=== PATIENT | male | born 1965 | race Caucasian/White ===

== ENCOUNTER → 2019-11-05 09:28 | Outpatient (BNVA) | payer MEDICARE, MEDICAID, SELFPAY | PROVIDERS: Family Provider Nurse Practitioner Family; PCP Nurse Practitioner Family; Visit Provider Specialist | DX: G81.14 Spastic hemiplegia affecting left nondominant side (principal); F17.210 Nicotine dependence, cigarettes, uncomplicated | CPT/HCPCS: 64642; J0585 ==

== ENCOUNTER 2020-01-11 11:27 | Day surgery (SDC) | payer MEDICARE, MEDICAID, SELFPAY ==
[2020-01-08 13:20] VITALS: BMI 27.8
[2020-01-11] VITALS (11 sets, daily range): BP systolic 143–192; BP diastolic 78–112; PULSE 65–87; RESP 14–20; TEMP 36.6–37; O2SAT 95–100
[2020-01-11] MEDS: sodium chloride 0.9% 1,000 ML 30 ML IV (12:28)
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
[2020-01-11] MEDS: lidocaine 2% INJ 20 mL INJECTION (14:22)
--- NOTE | 2020-01-11 14:55 | PM.OP ---
Operative Report Date of procedure: January 11, 2020 Pre-op Diagnosis: Left inguinal hernia Post-op diagnosis: same (Indirect left inguinal hernia) Procedure Done: Open left inguinal hernia repair with mesh placement and excision of left spermatic cord lipoma Implants: Polypropylene mesh small size Specimens removed/disposition: Hernial sac and lipoma of the cord Surgeon: Jeffery Jaimes Director Private Music Therapy Agency: [facility] Anesthesia: General (sand slinger is Mathias and Jovon) Estimated blood loss (mL): 5 Complications: No immediate complication Condition: stable Disposition: same day Brief History: This is a pleasant 54 years old gentleman referred to my practice with symptomatic left inguinal hernia, after thorough history physical examination and reviewing the chart I did rehabilitation counselor the patient for left open inguinal hernia repair with mesh placement and patient agreed to proceed. Informed consent per chart Procedure: Patient was identified in the holding area and left groin was marked by myself, patient was asked to void urine prior to surgery ,patient was taken to the operating room where he was placed in supine position, antibiotic was given with induction, endotracheal tube was placed per anesthesia, prep and drape of both groins and lower abdomen and scrotum including the genitalia was done under the usual sterile technique. Timeout was done verifying the patient's name/date of /planned procedure destination after the procedure, all were in agreement. SCDs confirmed to be functioning, preoperative antibiotics administered per protocol, and beta kraig protocol was confirmed. I started with a left groin incision 1-1/2 finger above the inguinal ligament towards the pubic tubercle, used 15 blade knife skin incision followed by a traversing vein was securely ligated by 3-0 silk ties and divided,continued to dissect using Bovie to subcutaneous Joseph's down to the external oblique aponeurosis, a moderate left indirect inguinal hernia was identified, external oblique aponeurosis was then incised using a 10 blade knife, after application of 2 hemostats across sides of the fascia and opened it, left ileo-inguinal nerve was safeguard, I managed to dissect and deliver the left spermatic cord out of the wound, and placed a Sara drain for traction and countertraction, I dissected the spermatic cord and the vas deferens is identified and safeguarded ,as I identified a left indirect inguinal hernia sac,the hernia sac was totally dissected until I reached the deep inguinal ring, I opened the hernia sac the contents were viable, and I did apply a transfixing suture with 2-0 silk pop off under direct vision were I tied down and the sac went inside the abdominal cavity and I cut the extra sac and sent it for pathology, an extra 2-0 silk was applied at the stump of the sac safeguarding the contents. Associated lipoma of the cord was dissected and excised and sent for pathology Attention was now deviated to mesh placement , using polypropylene mesh system was applied tension-free(small size), a cone was applied at the deep inguinal ring stabilized by silk sutures 2/0, followed by a sheet of mesh was applied onto the floor of the posterior wall of the left inguinal canal and anchored medially to the pubic tubercle then inferiorly to the underlying surface of the inguinal ligament and superiorly to the internal oblique aponeurosis using some sutures 2/0, both limbs of the mesh encircled the exit of the cord at the deep inguinal ring, and stitched down. The cord maintained to be in good position thorough irrigation of the wound was done with normal saline and closure of the external oblique aponeurosis was done by 2/O Vicryl, followed by approximation of Joseph's fascia by 3-0 Vicryl then 4/ Monocryl to close the skin, dressing was then applied in the form of Dermabond. Counts of instruments, sponges and needles were completed at the end of the procedure. Scrotal support was then placed Patient tolerated the procedure well and was taken to the recovery area after extubation I was present for the whole entire procedure
[2020-01-11] MEDS: HYDROcodone-acetaminophen 7.5-325 mg Tablet 1 TAB PO (16:50)
== END 2020-01-11 17:35 ==
PROVIDERS: Family Provider Nurse Practitioner Family; PCP Nurse Practitioner Family; Visit Provider Surgery
PROC: (CPT 49505; principal; 2020-01-11 13:25)
DX: K40.90 Unilateral inguinal hernia, without obstruction or gangrene, not specified as recurrent (principal); D17.6 Benign lipomatous neoplasm of spermatic cord; F17.210 Nicotine dependence, cigarettes, uncomplicated
CPT/HCPCS: 49505; 55520; 12345; 51702; 88302; 88304; 96365; J0131; J0690; J1100; J2001; J2405; J2704; J2710; J3010; J3490; J7030

== ENCOUNTER → 2020-01-28 09:59 | Outpatient (BNVA) | payer MEDICARE, MEDICAID, SELFPAY | PROVIDERS: Family Provider Nurse Practitioner Family; PCP Nurse Practitioner Family; Visit Provider Specialist | DX: G81.12 Spastic hemiplegia affecting left dominant side (principal); F17.210 Nicotine dependence, cigarettes, uncomplicated | CPT/HCPCS: 64642; J0585 ==

== ENCOUNTER → 2020-04-26 14:19 | Outpatient (BNVA) | payer MEDICARE, MEDICAID, SELFPAY | PROVIDERS: Family Provider Nurse Practitioner Family; PCP Nurse Practitioner Family; Visit Provider Specialist | DX: G81.12 Spastic hemiplegia affecting left dominant side (principal) | CPT/HCPCS: 64642; 99214; J0585 ==

== ENCOUNTER 2020-05-31 06:00 | Outpatient (RCR) | payer MEDICARE, MEDICAID, SELFPAY | END 2020-06-08 23:59 | disposition home or self-care (01) | LOC: MOT 06:00 | PROVIDERS: PCP Nurse Practitioner Family; Referring Provider Specialist; Visit Provider Specialist | DX: G81.10 Spastic hemiplegia affecting unspecified side (principal) | CPT/HCPCS: 97166 ==

== ENCOUNTER 2020-10-06 14:20 | Emergency (ER) | payer MEDICAID, SELFPAY ==
[2020-10-06 14:24] VITALS: BP 145/84; PULSE 76; RESP 18; O2SAT 96; BMI 21.5
--- NOTE | 2020-10-06 14:34 | ED_ITS ---
HPI - Epistaxis General: Chief complaint: Epistaxis Stated complaint: NOSEBLEED Time Seen by Provider: 10/06/20 14:24 History of Present Illness: HPI Narrative: 55-year-old male presents emergency room with complaint of epistaxis. On arrival here with EMS EMS reports they had not seen any blood. Patient has stuffed tissue paper of both nares removal of those there is no evidence of any blood. Patient did state he put Vicks in his nose. There is a little bit of dried blood on the top of his left shoe but no other blood evident anywhere on his clothing. He states he does not take any blood thinners. Smells strongly of marijuana complaint: epistaxis Associated symptoms: Deny fever(s), headache(s), sinus pain, syncope, vomiting or weakness Treatment prior to arrival: stuffed nose with tissue Review of Systems Const: Denies: fever(s) ENMT: Denies: sinus pain Card: Denies: syncope Resp: Denies: dyspnea, productive cough or non-productive cough GI: Denies: vomiting : Denies: flank pain, dysuria, urinary frequency or urinary urgency Skin/Breast: Denies: rash or pruritus Neuro: Denies: headache(s) PFSH ED PFSH: Medical History Brain injury Chronic constipation Depression Hernia History of jejunostomy tube placement Left lower quadrant abdominal pain Left spastic hemiplegia Family History Other Cancer Diabetes Denies family history of Anesthesia complication Bleeding disorder Social History Smoking and tobacco status: current every day smoker Quit status (tobacco): not considering quitting Second hand smoke exposure: No Alcohol intake: current Alcohol intake frequency: holidays/special occasions only Desire information about substance/drug rehabilitation?: No Lives independently: Yes Housing: Apartment Marital status: Single History of recent travel: No Physical Exam Const: COMMON NORMALS: no acute distress GENERAL APPEARANCE: cooperative and comfortable ORIENTATION/CONSCIOUSNESS: Yes awake, Yes oriented to person, Yes oriented to place and Yes oriented to time HENMT: COMMON NORMALS: normocephalic, atraumatic and hearing grossly normal bilaterally HEAD & SCALP: normocephalic and atraumatic Neck/C-Spine: COMMON NORMALS: no JVD Resp: COMMON NORMALS: normal respiratory effort, No retractions, No use of accessory muscles and clear to auscultation bilaterally AUSCULTATION: clear to auscultation bilaterally Cardio: COMMON NORMALS: no JVD, regular rate, regular rhythm and No murmurs present (Cardio) RATE: regular rate RHYTHM: regular rhythm GI: COMMON NORMALS: Soft to palpation and No hepatosplenomegaly present AUSCULTATION: Yes normoactive bowel sounds PALPATION: Yes Soft to palpation, No Tenderness to palpation present (GI), No Guarding due to palpation present (GI) and Yes No hepatosplenomegaly present Extremity: COMMON NORMALS: normal to inspection, capillary refill normal, no clubbing, cyanosis or edema, no calf tenderness and no pedal edema Neuro: SENSORIUM/ORIENTATION: Yes oriented to person, Yes oriented to place and Yes oriented to time Skin: COMMON NORMALS: no rashes or lesions noted GENERAL SKIN EXAM: no rashes or lesions noted Course Vital Signs: Vital signs: Vital Signs Pulse Rate 76 10/06/20 14:24 Respiratory Rate 18 10/06/20 14:24 Blood Pressure 145/84 10/06/20 14:24 Pulse Oximetry 96 10/06/20 14:24 MDM - Epistaxis MDM Narrative: Medical decision making narrative: No sign of active bleeding or problem. Have patient use mupirocin inside the nares twice daily follow-up with primary care doctor return if worsens or recurs Discharge Plan Discharge Patient Disposition: Home Clinical Impression: Epistaxis Condition: Stable Prescriptions: New mupirocin 2 % ointment 1 applic topical BID Qty: 15 RF: 0 No Action baclofen 10 mg tablet 10 mg PO DAILY RF: 0 ibuprofen [IBU] 800 mg tablet 800 mg PO Q6H RF: 0 Hold Instructions: Resume on 01/15/20. hydrocodone-acetaminophen [[place]] 7.5-325 mg tablet 1 tab PO Q6H PRN (Reason: Pain) RF: 0 temazepam 7.5 mg capsule 7.5 mg PO DAILY RF: 0 (DME) Motorized Wheelchair See Rx Instructions .Route .MEDSUPPLY Qty: 1 RF: 0 Discharge Orders: Discharge ED (Routine); Ordered 10/06/20 Ordered By: Carlos Dial Referrals: Mily Helm NP [Primary Care Provider] - Discharge Diet: Usual diet Discharge Activity: Increase activity as tolerated Activity Restrictions/Additional Instructions: If you have any recurring problems with epistaxis recheck. Coding Level of Care Code ED Seal Mixing Operator for Catarina Casey
== END 2020-10-06 14:50 | disposition home or self-care (01) ==
PROVIDERS: Emergency Provider Family Medicine; PCP Nurse Practitioner Family
DX: F17.210 Nicotine dependence, cigarettes, uncomplicated (principal)
CPT/HCPCS: 12345; 99281

== ENCOUNTER → 2023-08-18 14:07 | Outpatient (BNVA) | payer MEDICARE, MEDICAID, SELFPAY | PROVIDERS: PCP Nurse Practitioner Family; Visit Provider Nurse Practitioner | DX: R50.9 Fever, unspecified (principal) | CPT/HCPCS: 81000; 87086; 87400; 87426 ==